=== PATIENT | female | born 1990 | race Caucasian/White ===

== ENCOUNTER 2017-04-13 18:00 | Emergency (ER) | payer MEDICAID, OTHER ==
[~2017-04-13] VITALS: Ht 162.6 cm; Wt 62.0 kg
[2017-04-13 18:09] VITALS: Ht 162.6 cm; Wt 62.0 kg
--- NOTE | 2017-04-13 18:32 | ERD ---
ER Documentation Chief Complaint Date/Time DATE: 04/13/17 Chief Complaint Pelvic pain HPI The patient is a 26-year-old nulliparous female who presents the Emergency Department with complaint of pelvic pain. The patient reports that approximately one week ago she developed pain to the right pelvic area. The pain is intermittent. It is sharp in nature and radiates towards the back. The pain is worsened with movement and palpation, and is relieved at rest. She rates her current pain as 5 out of 10. She has not yet taken any medication for pain relief. The patient notes that she has experienced similar symptoms in June, at which time she was evaluated and determined to have a ruptured ovarian cyst. Due to her history, she returns today requesting evaluation for possible recurrent cyst. She admits to some white/clear-colored vaginal discharge since last night. Her last menstrual period was 03/31/2017. However, since her last menstrual cycle she has been experiencing intermittent nonmenstrual bleeding. She is sexually active with one male partner with whom she is monogamous, though denies use of any barrier protection or contraception. She admits to some urinary frequency, but otherwise denies dysuria, hematuria or flank pain. Denies any STI exposure, but agrees to testing. Denies any prior pregnancies or abdominal/pelvic surgeries. Denies fevers, sweats, chills, nausea or vomiting. No other complaints at this time. ROS All systems reviewed and are negative except as per history of present illness. Medications Home Meds Active Scripts Ibuprofen* (Motrin*) 600 Mg Tab, 600 MG PO Q6, #30 TAB Prov:SON LONDON PA-C 04/13/17 Cephalexin* (Keflex*) 500 Mg Capsule, 500 MG PO QID for 7 Days, CAP Prov:SON LONDON PA-C 04/13/17 Allergies Allergies: Coded Allergies: No Known Allergy (Unverified , 04/13/17) PMhx/Soc Medical and Surgical Hx: pt denies Medical Hx, pt denies Surgical Hx Hx Alcohol Use: No Hx Substance Use: No Hx Tobacco Use: No Smoking Status: Unknown if ever smoked Physical Exam Vitals Vital Signs Date Time Temp Pulse Resp B/P Pulse Ox O2 Delivery O2 Flow Rate FiO2 04/13/17 21:19 70 20 127/79 99 Room Air 04/13/17 18:09 97.7 80 20 126/83 100 Physical Exam GENERAL: Well-developed, well-nourished, female, in no acute distress. Nontoxic. Well-appearing. HEENT: Head is normocephalic, atraumatic. No scleral pallor or icterus. Pupils equal, round and reactive to light. Conjunctiva pink. Moist mucous membranes. NECK: Supple. Full range of motion. RESPIRATORY: Lungs are clear to auscultation bilaterally. Equal breath sounds. Normal expiratory effort. CARDIOVASCULAR: Regular rate and rhythm. S1 and S2 normal. Distal pulses are palpable, 2+ bilaterally. Capillary refill is less than 2 seconds. GASTROINTESTINAL: Abdomen is soft, non-tender, and non-distended. No guarding, no rebound tenderness. Normal bowel sounds. No gross peritonitis. Negative Rovsing's sign. Negative Nichole's sign. No tenderness at McBurney's point. GENITOURINARY: Normal external genitalia. Small amount of white-colored discharge, with no odor. No bleeding. No cervical motion tenderness. No adnexal tenderness. No uterine tenderness. No masses. FLANK: No CVA tenderness. BACK: No midline tenderness. EXTREMITIES: No clubbing, cyanosis, or edema. Normal skin perfusion. Moving all extremities. Muscle tone is normal. No focal swelling or erythema. NEUROLOGIC: The patient is alert, awake, and oriented x 3. INTEGUMENT: Skin is intact. Warm and dry. PSYCHIATRIC: Cooperative. Appropriate. Result Diagram: 04/13/17184404/13/171844 Results 24 hrs Laboratory Tests Test 04/13/17 18:45 04/13/17 19:11 White Blood Count 6.810^3/ul Red Blood Count 4.4510^6/ul Hemoglobin 12.3g/dl Hematocrit 37.6% Mean Corpuscular Volume 84.5fl Mean Corpuscular Hemoglobin 27.6pg Mean Corpuscular Hemoglobin Concent 32.7g/dl Red Cell Distribution Width 14.0% Platelet Count 21583^3/UL Mean Platelet Volume 10.4fl Neutrophils % 71.7% Lymphocytes % 22.3% Monocytes % 4.6% Eosinophils % 0.9% Basophils % 0.4% Nucleated Red Blood Cells % 0.0/100WBC Neutrophils # 4.910^3/ul Lymphocytes # 1.510^3/ul Monocytes # 0.310^3/ul Eosinophils # 0.110^3/ul Basophils # 0.010^3/ul Nucleated Red Blood Cells # 0.010^3/ul Sodium Level 142mmol/L Potassium Level 3.9mmol/L Chloride Level 105mmol/L Carbon Dioxide Level 26mmol/L Anion Gap 15 Blood Urea Nitrogen 9mg/dl Creatinine 0.69mg/dl Glucose Level 87mg/dl Calcium Level 9.9mg/dl Serum HCG, Qualitative NEGATIVE Urine Color LT. YELLOW Urine Clarity SLIGHTLY CLOUDY Urine pH 6.0 Urine Specific Oaks 1.025 Urine Ketones 15 Urine Nitrite NEGATIVE Urine Bilirubin NEGATIVE Urine Urobilinogen 1.0 E.U./dL Urine Leukocyte Esterase TRACE Urine Microscopic RBC 5-10/HPF Urine Microscopic WBC 2-5/HPF Urine Epithelial Cells MODERATE Urine Bacteria FEW Urine Hemoglobin TRACE Urine Glucose NEGATIVE% Urine Total Protein NEGATIVE Procedures/MDM ED COURSE: The patient was stable throughout ED course. I kept the patient informed of laboratory and diagnostic imaging results throughout the ED course. Laboratory testing and US imaging was performed. CT imaging was offered to the patient, but the patient declined imaging, given radiation exposure. Analgesia medication offered to the patient, but was also refused, as patient states she only presented for evaluation/testing, and did not want any medication at this time. After rest, the patient reports no new complaints. She agrees to close follow-up with [facility]. DIAGNOSTIC TESTS AND INTERPRETATION: PROCEDURE: US Pelvis. CLINICAL INDICATION: Pelvic pain TECHNIQUE: Multiple sonographic images of the pelvis were obtained utilizing a transabdominal and endovaginal technique. The images were reviewed on a PACS workstation. COMPARISON: None. FINDINGS: The uterus is anteverted and measures 8.1 x 4.7 x 4.4 cm. The endometrial echo complex is normal and measures 7 mm. There are no uterine fibroids. There is no evidence for free fluid. The right ovary has a normal echotexture and measures 2.9 2.9 x 3.4 cm . The left ovary has a normal echotexture and measures 2.9 x 2.6 x 1.6 cm. No adnexal masses are noted. There are no findings of ovarian torsion. IMPRESSION:Negative exam. .Annabella Lagunas MD, MD Date Time Electronically viewed and signed by .Annabella Lagunas MD, on 04/13/2017 19:22 MEDICAL DECISION MAKING: This is a 26-year-old female presenting to the Emergency Department with pelvic pain. The patient had no significant abnormalities noted on physical examination and vital signs were normal. The differential diagnosis includes, but is not limited to, ectopic , endometritis, PID, TOA, cervicitis, endometriosis, dysmenorrhea, hemorrhage/ rupture of ovarian cyst, adnexal torsion, ovarian torsion, mittelschmerz, vaginitis, vaginosis, trichomonas, cystitis, pyelonephritis, ureterolithiasis, gastroenteritis, appendicitis, bowel obstruction, diverticulitis, IBD, IBS, hernia, AAA, ischemic bowel. No significant laboratory abnormalities were noted. test negative. Urinalysis revealed trace urine leukocyte esterase with few bacteria and WBC, indicating possible urinary tract infection. Ultrasound performed no evidence of ovarian torsion, large cysts, adnexal masses. Urogenital wet mount noted no yeast, and per laboratory inspector, no clue cells or trichomonads. Gonorrhea/chlamydia testing sent. Urine culture sent. The patient's condition remained stable during their stay after serial evaluations with stable vital signs. On re-evaluation, the patient reports no new complaints and decreased pain. Upon my review and interpretation of the patient's presentation, clinical data, and overall ER course, I believe the patient's symptoms are most consistent with pelvic pain, uncertain etiology, and possible urinary tract infection. Abdominal examination benign, with no peritoneal signs. Low suspicion for acute/ surgical abdomen. She has not had fever or any constitutional symptoms, no flank pain or CVA tenderness, and therefore I doubt pyelonephritis. Low suspicion for cervicitis, PID, TOA. At this time, the patient is in stable condition and therefore she can be discharged home with prescriptions for Ibuprofen and Keflex and strict return precautions for signs of deteriorating or worsening condition. The patient is advised to follow up with her [facility] within 1-2 days for reevaluation and further management, or return to the ER sooner for any worsening symptoms. I shared all laboratory and diagnostic imaging studies with the patient at length and in great detail, and the patient verbally understands and agrees with the plan for further observation and care as an outpatient. At the time of discharge, all questions were answered. Departure Diagnosis: Primary Impression: Pelvic pain Additional Impression: Urinary tract infection Urinary tract infection type: acute cystitis Hematuria presence: with hematuria Qualified Code: N30.01 - Acute cystitis with hematuria Condition: Stable Patient Instructions: Pelvic Pain, Unknown Cause, Understanding Urinary Tract Infections (UTIs) Additional Instructions: Follow up with your primary medical provider and an [facility] within 1-2 days for reevaluation and further management. Return to the ED sooner for any new or worsening symptoms. SON LONDON PA-C Apr 13, 2017 18:32
[2017-04-13 18:54] LABS: ADD SCAN DIFF NO
[2017-04-13 18:56] LABS: BASOPHILS % 0.4 % (0.0-2.0); EOSINOPHILS # 0.1 10^3/ul (0.0-0.5); EOSINOPHILS % 0.9 % (0.0-7.0); HEMATOCRIT 37.6 % (37.0-47.0); HEMOGLOBIN 12.3 g/dl (12.0-16.0); LYMPHOCYTES # 1.5 10^3/ul (0.8-2.9); LYMPHOCYTES % 22.3 % (15.0-51.0); MEAN CORPUSCULAR HEMOGLOBIN 27.6 pg (29.0-33.0); MEAN CORPUSCULAR HGB CONC 32.7 g/dl (32.0-37.0); MEAN CORPUSCULAR VOLUME 84.5 fl (82.0-101.0); MEAN PLATELET VOLUME 10.4 fl (7.4-10.4); MONOCYTE # 0.3 10^3/ul (0.3-0.9); MONOCYTES % 4.6 % (0.0-11.0); NEUTROPHIL # 4.9 10^3/ul (1.6-7.5); NEUTROPHILS % 71.7 % (39.0-77.0); PLATELET COUNT 270 10^3/UL (140-415); RED BLOOD COUNT 4.45 10^6/ul (4.20-5.40); WHITE BLOOD COUNT 6.8 10^3/ul (4.8-10.8)
[2017-04-13 19:18] LABS: CALCIUM 9.9 mg/dl (8.4-10.2); CREATININE 0.69 mg/dl (0.44-1.00); POTASSIUM 3.9 mmol/L (3.5-5.1)
--- NOTE | 2017-04-13 19:23 | RADRPT ---
PROCEDURE: US Pelvis. CLINICAL INDICATION: Pelvic pain TECHNIQUE: Multiple sonographic images of the pelvis were obtained utilizing a transabdominal and endovaginal technique. The images were reviewed on a PACS workstation. COMPARISON: None. FINDINGS: The uterus is anteverted and measures 8.1 x 4.7 x 4.4 cm. The endometrial echo complex is normal and measures 7 mm. There are no uterine fibroids. There is no evidence for free fluid. The right ovary has a normal echotexture and measures 2.9 2.9 x 3.4 cm . The left ovary has a amber l echotexture and measures 2.9 x 2.6 x 1.6 cm. No adnexal masses are noted. There are no findings o f ovarian torsion. IMPRESSION: Negative exam. RPTAT: EE .Annabella Lagunas MD, MD Date Time Electronically viewed and signed by .Annabella Lagunas MD, on 04/13/2017 19:22 .F/
[2017-04-13 19:34] LABS: ADD UMIC YES; UR BILIRUBIN (Dip) NEGATIVE (NEGATIVE); UR BLOOD (Dip) TRACE (NEGATIVE); UR CLARITY SLIGHTLY CLOUDY (CLEAR); UR COLOR LT. YELLOW (YELLOW); UR GLUCOSE (Dip) NEGATIVE (NEGATIVE); UR KETONES (Dip) 15 (NEGATIVE); UR LEUKOCYTE ESTERASE (Dip) TRACE (NEGATIVE); UR NITRITE (Dip) NEGATIVE (NEGATIVE); UR TOTAL PROTEIN (Dip) NEGATIVE (NEGATIVE); UR UROBILINOGEN (Dip) 1.0 E.U./dL (0.1-1.0)
[2017-04-13 19:41] LABS: UR BACTERIA FEW
[2017-04-13] MEDS ORDERED: IBUP-1542 PO (21:05)
[2017-04-13] MEDS ORDERED: CEPH-443 PO (21:05)
[2017-04-13 21:19] VITALS: BP 127/79; PULSE 70; RESP 20
== END 2017-04-13 21:21 | disposition home or self-care (01) ==
LOC: FTE 18:00
DX: R10.2 Pelvic and perineal pain (principal); N30.01 Acute cystitis with hematuria
CPT/HCPCS: 36415; 76856; 80048; 81001; 84703; 85025; 87210; 87591; Z7502

== ENCOUNTER 2018-08-09 15:44 | Emergency (ER) | END 2018-08-09 17:05 | disposition home or self-care (01) ==